=== PATIENT | male | born 1975 ===

== ENCOUNTER 2017-01-02 17:58 | Emergency (ER) | payer SELFPAY ==
[~2017-01-02] VITALS: Ht 162.6 cm; Wt 72.0 kg
[2017-01-02 18:02] VITALS: Ht 162.6 cm; Wt 72.0 kg
== END 2017-01-02 23:10 | disposition left against medical advice (07) ==
LOC: E/R 17:58
DX: Z53.21 Procedure and treatment not carried out due to patient leaving prior to being seen by health care provider (principal)